=== PATIENT | female | born 2000 | race Caucasian/White ===

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

== ENCOUNTER 2020-11-23 09:25 | Inpatient (IN) ==
[2020-11-23] MEDS ORDERED: OXYTOCIN 30 UNITS/500 ML BAG IV PRN ×3 (09:39→23:40)
[2020-11-23] MEDS ORDERED: ceFAZolin 1000MG 1,000 MG/7.5 ML SYR IV PRN (09:39)
--- NOTE | 2020-11-23 09:43 | Labor Progress Brief Note ---
Date of Service November 23, 2020 Subjective Review of Systems All systems reviewed & are unremarkable except as noted in HPI & below Assessment & Plan (1) Normal labor and delivery: Admit, start GBS antibiotic (Ancef d/t allergy) and epidural on request Physical Exam Constitutional: WD/WN, vitals as above Eyes: PERRL, conjunctivae normal, anicteric sclerae ENMT: external ear and nose normal, oropharynx normal Neck: supple Respiratory: normal respiratory effort and able to speak in complete sentences; no respiratory distress Cardiovascular: Rate/Rhythm: regular rate and regular rhythm Extremities: + pedal edema Gastrointestinal (Abdomen): Gravid / AGA, nontender Musculoskeletal: no cyanosis or clubbing, extremities motor strength 5/5 Skin: no rashes, warm and dry Neurologic: patellar DTR's 2+ bilat, sensation intact Psychiatric: A+Ox3, euthymic affect Genitourinary: Speculum/Bimanual Exam: no vaginal lesions, no vaginal bleeding and uterus nontender OB Exam Abdomen: + vertex, + estimated weight (7) and + regular contractions (Q3) Manual OB Exam: + cervical dilation 7 cm, + cervical effacement 80%, + station 0 and + amniotic fluid clear OB Exam Monitor Tracing: + external FHT monitor used, + external uterine monitor used and + category I Lymphatic: no cervical or axillary lymphadenopathy Results & Data ([facility]) Vital Signs (Past 12 Hours) Vital Signs Pulse BP 11/23/20 09:36 93 H 135/87 Coding Level of Care Code None Diagnoses Normal labor and delivery O80
[2020-11-23] MEDS ORDERED: ceFAZolin 2000MG 2,000 MG/15 ML SYR IV ONE (10:00)
[2020-11-23 10:05] LABS: Mean Corpuscular Hgb Conc 34.4 g/dL (32-36)
[2020-11-23] MEDS: LACTATED RINGER'S 1,000 ML IV PRN ×3 (10:06→21:20)
[2020-11-23] MEDS ORDERED: ePHEDrine sulfate 50 MG/ML AMP ONE (10:11)
[2020-11-23] MEDS ORDERED: SODIUM CHLORIDE 0.9% INJ 10 ML VIAL ONE (10:11)
[2020-11-23] MEDS ORDERED: fentaNYL citrate 100 MCG/2 ML VIAL ONE (10:11)
[2020-11-23] MEDS ORDERED: BUPIVACAINE 0.25% 30 ML VIAL ONE (10:11)
[2020-11-23] MEDS ORDERED: fentaNYL 2MCG/ML ROPIVACAINE 1.25MG/ML 100 ML BAG EPI ONE (10:12)
[2020-11-23 10:21] LABS: Hematocrit (blood only) 39.3 % (37-47); Hemoglobin 13.5 g/dL (12.0-16.0); Mean Corpuscular Hemoglobin 32.7 pg (25-34); Mean Corpuscular Volume 95.2 fL (80-100); RDW Standard Deviation 48.1 fL (36.4-46.3); Red Blood Count 4.13 M/uL (4.2-5.4); White Blood Count 14.58 K/uL (4.8-10.8)
[2020-11-23 10:25] LABS: Mean Platelet Volume 12.8 fL (7.4-10.4); Platelet Count 140 K/uL (130-400); Platelet Estimate Decreased (Normal)
[2020-11-23] MEDS ORDERED: NALOXONE HCL 1 MG in SODIUM CHLORIDE 0.9% 1000ML 1,000 ML IV PRN (10:26)
[2020-11-23] MEDS ORDERED: diphenhydrAMINE 50 MG/ML VIAL IV PRN (10:26)
[2020-11-23] MEDS ORDERED: NALOXONE HCL 0.4 MG/1 ML VIAL/CARP IV PRN (10:26)
[2020-11-23] MEDS ORDERED: ONDANSETRON INJ 2 MG/ML 2 ML VIAL IV PRN (10:26)
[2020-11-23] MEDS ORDERED: ePHEDrine sulfate 50 MG/ML AMP IV PRN (10:26)
[2020-11-23] MEDS ORDERED: fentaNYL 2MCG/ML ROPIVACAINE 1.25MG/ML 100 ML BAG EPI PRN (10:26)
--- NOTE | 2020-11-23 10:30 | Anesthesiology Consultation ---
Date of Service November 23, 2020 Assessment & Plan Chart Review Chart Review: Acceptable Risk for Labor Epidural Consults Requested none ASA ASA2 Proposed Anesthesia Anesthesia Type: Labor Epidural Risk / Benefits Reviewed With: PT / POA / Parent / Guardian, Accepts Plan and Informed Consent Obtained History Height/Weight Height: 5 ft 8 in Weight: 110.223 kg Allergies Allergy/AdvReac Type Severity Reaction Status Date / Time Penicillins Allergy Unknown PCN AND Verified 11/20/20 09:30 AMOXICILLIN,HAS TAKEN CEPHS IN THE PAST amoxicillin Allergy Verified 11/20/20 09:30 Medications Home Medications Medication Instructions Recorded Confirmed Last Taken valacyclovir 1 gram tablet 1,000 mg PO DAILY #30 tab 02/06/20 11/20/20 Unknown prenat.vits,gianni,kpy-bhdd-oanso 1 tab PO DAILY #30 tab 04/11/20 11/20/20 Unknown polyethylene glycol 3350 17 17 gm PO DAILY 04/17/20 11/20/20 Unknown gram/dose oral powder triamcinolone acetonide 0.025 % 1 applic TOPICAL BID #80 g 08/20/20 11/20/20 Unknown topical cream Active Medications Generic Name Dose Route Start Last Admin Trade Name Freq PRN Reason Stop Dose Admin Lactated Ringer's 1,000 mls @ 125 mls/hr 11/23/20 09:39 11/23/20 10:06 Lr IV 11/25/20 09:38 999 mls/hr .Q8H PRN Administration L&D Protocol Protocol Past Medical History Medical History Abnormal uterine bleeding (AUB) Acne Amenorrhea BMI 28.0-28.9,adult Chronic constipation Dizziness Encounter for anatomic survey Epigastric abdominal pain Episode of syncope Headache behind the eyes Multiple atypical skin moles Nausea & vomiting Other closed fractures of distal end of radius (alone) Pre-syncope Recurrent cold sores Right ovarian cyst Spotting between menses Exercise / Class Metabolic Activity II 4-5 Yardwork/Stairs/Walk up hill Past Family History Family History Grandmother (Paternal) Ovarian cancer Other Breast cancer Denies family history of Prostate cancer Diabetes Heart disease Myocardial infarction Colorectal cancer Lung disease Hypertension Past Surgical History Surgical History S/P appendectomy Past Anesthesia History No Hx of Anesthesia Complications and No Family Hx of Anesthesia Complications History of PONV No Hx of PONV and No Hx of Motion Sickness Social History Smoking Status: Never smoker Hx Alcohol Use: No Hx Substance Use: No substance use type: does not use Physical Exam Vital Signs Last Vital Signs Pulse 93 H 11/23/20 09:36 Resp 20 11/23/20 09:48 BP 135/87 11/23/20 09:36 ENMT Mouth: no dentition abnormality Thyromental Distance: > or= 3.5 Finger Breadths Mallampati Class: II Neck normal visual inspection Respiratory normal respiratory effort Auscultation: lungs clear to auscultation bilaterally Cardiovascular Rate/Rhythm: regular rate and regular rhythm Testing Laboratory Results 11/23/20 09:54
--- NOTE | 2020-11-23 12:19 | Labor Progress Brief Note ---
Date of Service November 23, 2020 Subjective Comfortable with epidural Assessment & Plan (1) Normal labor and delivery: Given lack of further progress and degrading contraction pattern, will augment labor with pitocin. Patient and FOB agreeable. Admission and Anticipated Discharge Date Admission Date: November 23, 2020 Physical Exam Physical Exam: 80/0 LOF clear FHT Cat 1 [place] irregular Results & Data ([facility]) Vital Signs (Past 12 Hours) Vital Signs Pulse Resp BP Pulse Ox 11/23/20 12:14 85 98 11/23/20 12:09 93 H 98 11/23/20 12:08 92 H 125/78 11/23/20 12:04 101 H 97 11/23/20 11:59 89 97 11/23/20 11:54 87 120/65 97 11/23/20 11:49 94 H 97 11/23/20 11:44 84 98 11/23/20 11:39 81 119/68 97 11/23/20 11:34 87 98 11/23/20 11:29 87 98 11/23/20 11:24 85 98 11/23/20 11:21 86 122/72 11/23/20 11:19 89 98 11/23/20 11:17 85 129/78 11/23/20 11:14 91 H 98 11/23/20 11:10 82 129/72 11/23/20 11:09 86 98 11/23/20 11:05 86 123/68 11/23/20 11:04 93 H 98 11/23/20 11:00 88 122/70 11/23/20 10:59 88 98 11/23/20 10:55 89 123/69 11/23/20 10:54 96 H 98 11/23/20 10:49 91 H 121/70 98 11/23/20 10:47 90 119/69 11/23/20 10:45 88 125/75 11/23/20 10:44 86 98 11/23/20 10:43 88 133/83 11/23/20 10:39 94 H 98 11/23/20 10:34 93 H 98 11/23/20 10:29 96 H 98 11/23/20 09:48 20 11/23/20 09:36 93 H 135/87 Coding Level of Care Code None Diagnoses Normal labor and delivery O80
--- NOTE | 2020-11-23 19:27 | Labor Progress Brief Note ---
Date of Service November 23, 2020 Subjective Comfortable with epidural Assessment & Plan Admission and Anticipated Discharge Date Admission Date: November 23, 2020 Physical Exam Physical Exam: 9/100/+1 FHT Cat 1 [place] Q2-3 LOF Clear Results & Data ([facility]) Vital Signs (Past 12 Hours) Vital Signs Temp Pulse Resp BP Pulse Ox 11/23/20 19:24 86 98 11/23/20 19:23 87 130/81 11/23/20 19:19 93 H 98 11/23/20 19:14 99 H 97 11/23/20 19:10 97.9 F 18 11/23/20 19:09 92 H 98 11/23/20 19:08 99 H 133/77 11/23/20 19:04 110 H 98 11/23/20 18:59 94 H 97 11/23/20 18:54 93 H 97 11/23/20 18:53 90 127/78 11/23/20 18:49 93 H 97 11/23/20 18:44 92 H 97 11/23/20 18:39 104 H 97 11/23/20 18:38 94 H 126/71 11/23/20 18:34 100 H 97 11/23/20 18:29 98 H 97 11/23/20 18:24 106 H 129/74 97 11/23/20 18:19 98 H 96 11/23/20 18:14 94 H 98 11/23/20 18:09 93 H 98 11/23/20 18:08 94 H 128/72 11/23/20 18:04 92 H 98 11/23/20 17:59 87 98 11/23/20 17:54 88 97 11/23/20 17:53 88 128/79 11/23/20 17:49 101 H 98 11/23/20 17:44 88 98 11/23/20 17:39 98 H 117/68 97 11/23/20 17:34 94 H 97 11/23/20 17:29 91 H 98 11/23/20 17:24 79 97 11/23/20 17:23 81 121/62 11/23/20 17:19 89 99 11/23/20 17:15 18 11/23/20 17:14 88 98 11/23/20 17:09 89 98 11/23/20 17:08 84 122/66 11/23/20 17:04 89 99 11/23/20 16:59 94 H 98 11/23/20 16:54 96 H 98 11/23/20 16:53 86 130/86 11/23/20 16:49 100 H 98 11/23/20 16:45 18 11/23/20 16:44 88 97 11/23/20 16:40 97 H 124/74 11/23/20 16:39 95 H 97 11/23/20 16:34 89 97 11/23/20 16:29 93 H 97 11/23/20 16:24 91 H 130/75 97 11/23/20 16:19 96 H 97 11/23/20 16:15 18 11/23/20 16:14 88 97 11/23/20 16:09 88 97 11/23/20 16:08 85 124/70 11/23/20 16:04 92 H 97 11/23/20 15:59 84 97 11/23/20 15:54 88 97 11/23/20 15:53 88 124/71 11/23/20 15:49 103 H 98 11/23/20 15:45 18 11/23/20 15:44 94 H 97 11/23/20 15:39 85 97 11/23/20 15:38 96 H 119/70 11/23/20 15:34 96 H 97 11/23/20 15:29 84 97 11/23/20 15:25 81 120/69 11/23/20 15:24 84 97 11/23/20 15:19 85 98 11/23/20 15:15 98.1 F 18 11/23/20 15:14 92 H 98 11/23/20 15:09 87 98 11/23/20 15:08 89 121/70 11/23/20 15:04 86 98 11/23/20 14:59 89 98 11/23/20 14:54 85 125/75 98 11/23/20 14:49 87 97 11/23/20 14:44 82 98 11/23/20 14:39 84 128/70 97 11/23/20 14:36 89 90 11/23/20 14:34 83 97 11/23/20 14:30 20 11/23/20 14:29 84 96 11/23/20 14:24 89 98 11/23/20 14:23 88 114/61 02/27/21 14:19 92 H 98 11/23/20 14:14 86 98 11/23/20 14:09 79 98 11/23/20 14:08 86 131/71 11/23/20 14:04 77 98 11/23/20 14:00 20 11/23/20 13:59 82 97 11/23/20 13:54 81 128/70 97 11/23/20 13:49 79 97 11/23/20 13:44 85 98 11/23/20 13:40 93 H 122/75 11/23/20 13:39 97 H 97 11/23/20 13:34 84 97 11/23/20 13:30 18 11/23/20 13:29 86 97 11/23/20 13:25 86 129/76 11/23/20 13:24 88 96 11/23/20 13:19 91 H 98 11/23/20 13:14 86 97 11/23/20 13:09 97.9 F 90 20 123/64 97 11/23/20 13:04 88 97 11/23/20 12:59 83 97 11/23/20 12:54 87 98 11/23/20 12:53 82 121/73 11/23/20 12:49 83 97 11/23/20 12:45 18 11/23/20 12:44 84 98 11/23/20 12:39 101 H 98 11/23/20 12:38 82 125/73 11/23/20 12:34 89 98 11/23/20 12:30 20 11/23/20 12:29 92 H 97 11/23/20 12:24 95 H 97 11/23/20 12:23 90 125/72 11/23/20 12:19 89 98 11/23/20 12:15 18 11/23/20 12:14 85 98 11/23/20 12:09 93 H 98 11/23/20 12:08 92 H 125/78 11/23/20 12:04 101 H 97 11/23/20 12:00 18 11/23/20 11:59 89 97 11/23/20 11:54 87 120/65 97 11/23/20 11:49 94 H 97 11/23/20 11:45 20 11/23/20 11:44 84 98 11/23/20 11:39 81 119/68 97 11/23/20 11:34 87 98 11/23/20 11:30 20 11/23/20 11:29 87 98 11/23/20 11:24 85 98 11/23/20 11:21 97.7 F 86 20 122/72 11/23/20 11:19 89 98 11/23/20 11:17 85 129/78 11/23/20 11:15 20 11/23/20 11:14 91 H 98 11/23/20 11:10 82 129/72 11/23/20 11:09 86 98 11/23/20 11:05 86 123/68 11/23/20 11:04 93 H 98 11/23/20 11:00 88 20 122/70 11/23/20 10:59 88 98 11/23/20 10:55 89 123/69 11/23/20 10:54 96 H 98 11/23/20 10:49 91 H 121/70 98 11/23/20 10:47 90 119/69 11/23/20 10:45 88 125/75 11/23/20 10:44 86 98 11/23/20 10:43 88 133/83 11/23/20 10:39 94 H 98 11/23/20 10:34 93 H 98 11/23/20 10:29 96 H 98 11/23/20 09:48 20 11/23/20 09:36 97.9 F 93 H 20 135/87 Coding Level of Care Code None
--- NOTE | 2020-11-23 23:37 | Delivery Summary ---
Vaginal Delivery Summary Date of Service November 23, 2020 Vaginal Delivery Summary DIAGNOSES: 1. Barron intrauterine at 40w3d gestation. 2. Spontaneous onset of labor. 3. Group B Streptococcus Pos. PROCEDURE: Spontaneous vaginal delivery and repair of second degree laceration. SURGEON: Odilia Bales MD. HOB MILL OPERATOR: None. ESTIMATED BLOOD LOSS: 400 mL. COMPLICATIONS: None. PLACENTA: Spontaneous and intact with a 3-vessel cord. DISPOSITION: Stable to labor and delivery. DESCRIPTION: The patient pushed well and brought the head to in OA position. The infant's head was allowed to deliver with contraction force and no further active pushing, with the perineum protected during this time. The shoulders delivered easily with a maternal pushing effort. There was no nuchal cord. The right shoulder was anterior. The shoulders and body delivered without any difficulty, and the infant was placed on the maternal abdomen. It was vigorous and moving all extremities, and making respiratory efforts. The cord was doubly clamped by the MD and then cut by the FOB. The placenta delivered spontaneously and was noted to be intact and with a 3VC. The cervix, vagina and perineum were examined and were found to have a second-degree laceration that was repaired in the usual manner using vicryl suture including a crown stitch to rebuild the perineal body. The fundus was firm and lochia minimal immediately after delivery. [facility] Vaginal Delivery Charge Vaginal Delivery Codes: 04915 global code for the antepartum, delivery, and post-
[2020-11-23] MEDS ORDERED: oxyCODONE/ACETAMINOPHEN 5mg/325mg TAB PO PRN (23:40)
[2020-11-23] MEDS ORDERED: DIPHTHERIA/TETANUS/PERTUSSIS 0.5 ML SYR/VIAL IM ONE (23:40)
[2020-11-23] MEDS ORDERED: ACETAMINOPHEN 325 MG TAB PO PRN (23:40)
[2020-11-23] MEDS ORDERED: SUPERCREAM 0.870% 15 GM JAR EXT PRN (23:40)
[2020-11-23] MEDS ORDERED: HYDROCORTISONE ACETATE 25 MG SUPP PR PRN (23:40)
[2020-11-23] MEDS ORDERED: BENZOCAINE 20% AER SPR 82.5 GM CAN EXT PRN (23:40)
[2020-11-24] MEDS: IBUPROFEN 600 MG TAB PO PRN ×6 (00:01→23:33)
--- NOTE | 2020-11-24 01:36 | Anesthesia Procedure Note ---
Date of Service November 24, 2020 Anesthesia Post Epidural Note Vital Signs Vital Signs: Temp Pulse Resp BP Pulse Ox 36.8 C 83 18 116/66 96 11/23/20 23:30 11/24/20 01:17 11/23/20 23:30 11/24/20 01:17 11/23/20 23:29 Notes Mental Status: alert / awake / arousable and participated in evaluation Nausea / Vomiting: adequately controlled Pain: adequately controlled Airway Patency, RR, SpO2: stable & adequate BP & HR: stable & adequate Hydration State: stable & adequate Neuraxial Anesthesia: was administered and sensory block is resolving Anesthetic Complications: no major complications apparent and Pt Satisfied with anesthetic care Epidural: Removed without complications and With tip intact Notes: Epidural site clean, dry and intact. No signs of edema, erythema or bruising at insertion site. Pt instructed to request anesthesia if she has residual lower extremity numbness or if she develops lower extremity pain or weakness, back pain or headache.
[2020-11-24 06:35] LABS: Hematocrit (blood only) 34.3 % (37-47); Hemoglobin 11.7 g/dL (12.0-16.0); Mean Corpuscular Hemoglobin 32.7 pg (25-34); Mean Corpuscular Hgb Conc 34.1 g/dL (32-36); Mean Corpuscular Volume 95.8 fL (80-100); Mean Platelet Volume 12.8 fL (7.4-10.4); Platelet Count 134 K/uL (130-400); RDW Coefficient of Variation 13.8 % (11.5-14.5); RDW Standard Deviation 47.7 fL (36.4-46.3); Red Blood Count 3.58 M/uL (4.2-5.4); White Blood Count 21.53 K/uL (4.8-10.8)
[2020-11-24] MEDS: DOCUSATE SODIUM 100 MG CAP PO SCH ×2 (08:49→22:04)
[2020-11-24] MEDS: PRENATAL VITAMIN 1 TAB PO SCH (08:50)
--- NOTE | 2020-11-24 09:00 | Obstetrical Progress Note ---
Date of Service November 24, 2020 Assessment & Plan (1) state: Recovering normally PPD1. Subjective Ambulation: ambulating normally Voiding: no voiding problems Passing Gas:: Yes Diet Tolerance:: regular diet Lochia:: Small Feeding Type:: breast feeding Physical Exam Constitutional WD/WN, vitals as above Eyes PERRL, conjunctivae normal, anicteric sclerae Neck normal visual inspection Respiratory normal respiratory effort and able to speak in complete sentences; no respiratory distress and no labored breathing Cardiovascular Rate/Rhythm: regular rate and regular rhythm Extremities: no edema Chest (Breasts) Chest: normal inspection of chest Gastrointestinal (Abdomen) Inspection/Auscultation: abdomen normal to inspection Soft, postgravid Psychiatric A+Ox3, euthymic affect Genitourinary OB Exam Abdomen: + fundal height Fundus: + firm and + relation to umbilicus (fundus just below umbilicus); not tender Edematous area 1x3cm in R labia minora posteriorly, does not palpate with a collection or fluctuance, does not track into vaginal wall; if it's a hematoma in the labia it's small and per patient has been shrinking with ice pack use, but I think it's just edema. Results & Data ([facility]) Vital Signs (Past 12 Hours) Vital Signs Temp Pulse Pulse Resp BP BP Pulse Ox 11/24/20 04:00 98.1 F 89 135/78 11/24/20 01:50 98.6 F 104 H 18 134/78 98 11/24/20 01:17 83 116/66 11/24/20 01:02 114 H 125/73 11/24/20 00:47 104 H 115/67 11/24/20 00:32 112 H 131/66 11/24/20 00:17 104 H 122/66 11/24/20 00:02 102 H 119/68 11/23/20 23:47 109 H 130/57 L 11/23/20 23:32 111 H 120/56 L 11/23/20 23:30 98.2 F 18 11/23/20 23:29 114 H 96 11/23/20 23:26 98.2 F 11/23/20 23:24 127 H 87 L 11/23/20 23:23 115 H 126/63 93 11/23/20 23:19 119 H 100 11/23/20 23:14 167 H 75 L 11/23/20 23:13 20 11/23/20 23:10 131 H 90 11/23/20 23:09 139 H 100 11/23/20 23:08 141 H 132/69 11/23/20 23:04 141 H 100 11/23/20 23:00 20 11/23/20 22:59 133 H 100 11/23/20 22:54 142 H 70 L 11/23/20 22:53 136 H 139/74 11/23/20 22:49 127 H 100 11/23/20 22:45 20 11/23/20 22:44 138 H 99 11/23/20 22:39 158 H 147/67 H 88 L 11/23/20 22:34 133 H 97 11/23/20 22:30 20 11/23/20 22:29 122 H 98 11/23/20 22:24 118 H 97 11/23/20 22:23 121 H 144/70 H 11/23/20 22:22 124 H 91 11/23/20 22:19 108 H 98 11/23/20 22:17 118 H 89 L 11/23/20 22:15 18 11/23/20 22:14 107 H 98 11/23/20 22:09 135 H 98 11/23/20 22:04 115 H 100 11/23/20 22:00 18 11/23/20 21:59 112 H 99 11/23/20 21:56 113 H 139/92 11/23/20 21:54 105 H 137/102 H 98 11/23/20 21:49 111 H 98 11/23/20 21:44 118 H 99 11/23/20 21:39 114 H 99 11/23/20 21:38 112 H 134/93 11/23/20 21:34 123 H 98 11/23/20 21:30 18 11/23/20 21:29 153 H 98 11/23/20 21:24 104 H 100 11/23/20 21:23 100 H 138/82 11/23/20 21:19 108 H 100 11/23/20 21:15 98.2 F 18 11/23/20 21:14 108 H 100 11/23/20 21:09 106 H 126/71 100 11/23/20 21:04 107 H 98 11/23/20 21:00 18 11/23/20 20:59 108 H 98
--- NOTE | 2020-11-25 04:53 | Obstetrical Progress Note ---
Date of Service November 25, 2020 Assessment & Plan (1) state: S/p Day 2 - Feels well today. Eating well, voiding well, ambulating well. - Pain well-controlled with ibuprofen 600mg Q4H PRN. - Vital signs reviewed and WNL. - Hemoglobin reviewed. 13.5 --> 11.7 --> (today). - Blood Type: AB+, antibody negative, GBS positive (s/p intrapartum abx), Rubella Immune, COVID-19 negative - Continue routine care: encourage ambulation, monitor and control pain with Motrin PRN, continue regular OB diet, monitor lochia - Encourage breast feeding. - Pt counselled on discharge instructions - After discharge, will have 6-wk follow-up with Dr. Bales Admission and Anticipated Discharge Date Admission Date: November 23, 2020 Supervising Physician Co-Signing Physician Notes Resident Physician Supervision Note: I interviewed and examined the patient. Discussed with Dr. Escobar and agree with findings and plan as documented in the note. Any exceptions or clarifications are listed here: Documented By: Odilia Bales MD, FACOG Subjective HPI Jeni Stark is a 20 y/o female who is PPD 2 spontaneous vaginal delivery at 40w3d. She reports feeling well overall this morning. No abdominal cramping and 0-5/10 pain well managed on analgesics. Voiding. Tolerating meals overnight without difficulty. Patient has been able to ambulate some. passing gas and no bowel movement. Has persistent lochia with some improvement this morning. Currently . Review of Systems Review of Systems: ROS Denies fever or chills. Denies shortness of breath or cough. Denies chest pain. Denies breast pain. Denies dysuria. Denies leg pain or leg swelling. Physical Exam Physical Exam: PE General: Alert, oriented. No acute distress. Cardiac: Regular rate and rhythm. No murmurs. Respiratory: Clear to auscultation bilaterally a/p, no wheezes/rales/rhonchi. No increased work of breathing. Symmetrical chest rise. No respiratory distress. Abdomen: Soft, nontender, nondistended. Bowel sounds present. Uterus: Uterine fundus firm, palpable at umbilicus. Lower Extremities: No lower extremity edema or swelling. No deep calf pain. Dexter's negative bilaterally. Results & Data ([facility]) Vital Signs (Past 12 Hours) Vital Signs Temp Pulse Resp BP Pulse Ox 11/24/20 23:30 37.1 C 66 18 110/72 99 11/24/20 19:50 36.8 C 89 18 112/72 98 Resident Activity Tracking Resident Involvement: Resident Care Provided Care Provided: Adult Hospital Medicine
[2020-11-25 06:12] LABS: Hematocrit (blood only) 32.2 % (37-47); Hemoglobin 10.9 g/dL (12.0-16.0)
[2020-11-25] MEDS: PRENATAL VITAMIN 1 TAB PO SCH (08:15)
[2020-11-25] MEDS: DOCUSATE SODIUM 100 MG CAP PO SCH (08:16)
[2020-11-25] MEDS: IBUPROFEN 600 MG TAB PO PRN (08:16)
== END 2020-11-25 13:15 | disposition home or self-care (01) | DRG 807 ==
LOC: 4S1 09:25 → OPB 09:25 → 4S1 09:39 → 4S2 11-24 01:45